=== PATIENT | male | born 1995 | race Caucasian/White ===

== ENCOUNTER 2018-02-21 14:39 | Emergency (ER) | payer BC ==
[2018-02-21 15:05] VITALS: BP 118/70
--- NOTE | 2018-02-21 15:56 | UC ---
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 he has always had "stomach issues" w/ voimiting and diarrhea periodically. -sx recently restarted ~ 5-6 days ago when he threw up one AM after eating dinner at 12:30 PM during his break at work (went to bed at 3 or 4). sx lhave been on/off x 1wk, hada couple of days w/o any sx. -Diarrhea and vomiting each x 1 today when he 1st woke up but npone since then + mid epigastric pain. no blood in stool or emesis. no melena or coffee ground emesis. -denies RUQ pain. -no fevers/chills - History of Current Complaint Chief Complaint: UCGI Stated Complaint: UPSET STOMACH Time Seen by Provider: 02/21/18 15:38 Pain Intensity: 5 - Allergies/Home Medications Allergies/Adverse Reactions: Allergies Allergy/AdvReac Type Severity Reaction Status Date / Time No Known Allergies Allergy Verified 02/21/18 14:58 Home Medications: Home Medications Calcium Carbonate [Tums] 200 mg PO Q4H 02/21/18 [History Confirmed 02/21/18] PMH/Surg Hx/FS Hx/Imm Hx Previously Healthy: Yes GI/ History: Other - IBS Other GI/ History: IBS - Surgical History Surgery Procedure, Year, and Place: EAR TUBES X2. WISDOM TEETH EXTRACTION - Family History Known Family History: Negative: Cardiac Disease, Diabetes - Social History Alcohol Use: Occasionally Substance Use Type: None Smoking Status (MU): Never Smoked Tobacco Review of Systems Constitutional: Fatigue Skin: Negative Eyes: Negative ENT: Negative Respiratory: Negative Cardiovascular: Negative Gastrointestinal: Abdominal Pain - mild epigastric. no jaundice or icterus., Vomiting, Diarrhea Genitourinary: Negative Motor: Negative Neurovascular: Negative Musculoskeletal: Negative Neurological: Negative Psychological: Negative Is Patient Immunocompromised?: No All Other Systems Reviewed And Are Negative: Yes Physical Exam Triage Information Reviewed: Yes Appearance: Well-Appearing, No Pain Distress, Well-Nourished - very pleasant Vital Signs: Initial Vital Signs Temp 97.8 F 02/21/18 14:56 Pulse 67 02/21/18 14:56 Resp 16 02/21/18 14:56 BP 118/70 02/21/18 14:56 Pulse Ox 100 02/21/18 14:56 Vital Signs Reviewed: Yes Eye Exam: Normal ENT Exam: Normal ENT: Positive: Pharynx normal, TMs normal Dental Exam: Normal Neck exam: Normal Neck: Positive: Supple, Nontender, No Lymphadenopathy Respiratory Exam: Normal Respiratory: Positive: Lungs clear, Normal breath sounds, No respiratory distress, No accessory muscle use Cardiovascular: Positive: RRR, No Murmur, Pulses Normal, Brisk Capillary Refill Abdomen Description: Positive: Soft, Other: - mild epigastric tenderness. 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 -Sx may be multifactorial etiology: GERD, GI virus, IBS. -treat w/ 30 days of PPI. avoid GERD triggers as discussed below. -f/u with GI to r/o other pathology such as ulcers, etc. -he understood me well and is agreeable w/ plan. - Differential Dx/Clinical Impression Differential Diagnosis/HQI/PQRI: Gall Bladder Disease, Other - gerd, IBS Provider Diagnoses: gerd, vomiting, diarrhea Discharge - Sign-Out/Discharge Documenting (check all that apply): Discharge - Discharge Plan Condition: Stable Disposition: HOME Prescriptions: Omeprazole 20 mg PO QAM 30 Days #30 capsule. Patient Education Materials: Irritable Bowel Syndrome (ED), Gastroesophageal Reflux Disease (ED) Referrals: No Primary Care Phys,NOPCP [Primary Care Provider] - Additional Instructions: Please call Dr Daljit Gallego, gastroenetrologist for follow up appt in the next couple of weeks. [address], [address] [place] [phone] - I have given you a prescription for omeprazole. take 1 tablet every morning on an empty stomach and eat about 45-60 mins after that. -Avoid late night meals, spicy foods, tomato based foods and alcohol. - Billing Disposition and Condition Condition: STABLE Disposition: HOME
== END 2018-02-21 16:16 | disposition home or self-care (01) ==
LOC: UCCORT 14:39
DX: K21.9 Gastro-esophageal reflux disease without esophagitis (principal); R11.11 Vomiting without nausea; R19.7 Diarrhea, unspecified
CPT/HCPCS: 99202; G0463